=== PATIENT | female | born 1995 | race Caucasian/White ===

== ENCOUNTER 2023-12-23 09:27 | Emergency (ER) | payer BC, SELFPAY ==
[2023-12-23 09:40] VITALS: BP 132/93
--- NOTE | 2023-12-23 10:31 | ED.MUSCINJ ---
HPI-Injury
General
Chief Complaint: Musculo-Skeletal Complaint
Source: patient and family (mother at bedside)
Exam Limitations: none
Time Seen by Provider: 12/23/23 10:12
Nursing documentation reviewed up to this point in time: agreed with
History of Present Illness-Injury
Initial Injury comments:
28 yo female with h/o GERD, IBS, Saroj-Danlos, MDD, MTHFR mutations, atlantoaxial instability, migraines, 'chronic neck and back issues,' presents stating while working out at gym doing abdominal exercises, about 3 hours ago, felt and heard a
'snap' in left side of neck. Due to her Saroj Danlos, atlantoaxial instability, and she is concerned that she herniated a disc (her mother at bedside states similar thing happened to her and she herniated a disc), pt also has tingling down left arm
and 5th finger.
Past History
Past History
ED Past Medical History: Other (MTHFR gene mutations, MDD, Atlanto-axial instability, migraines)
ED Past Surgical History: Tonsilectomy
Social History
Tobacco: Non-smoker
Alcohol: Occasional
Personal: Single
Living: with family
Employment: Employed
Review of Systems
Review of Systems
Allergies reviewed?: Yes
All Other Systems: ROS reviewed and negative except as documented in HPI and ROS
Constitutional: Denies fever
EENT: Denies sore throat or mouth pain
Respiratory: Denies trouble breathing
Cardiac: Denies chest pain
ABD/GI: Denies abdominal pain or nausea
: Reports other (Pt does not get menses, is on Mirena control )
Musculoskeletal: Reports neck pain
Skin: Reports no symptoms
Neurological: Reports other (tingling left arm and 5th finger)
Phy Exam
Physical Exam
Physical Exam:
GENERAL: No acute distress. A&Ox3.
CONSTITUTIONAL: Afebrile.
EYES: PERRL, conjunctivae normal
Neck: Tender left lateral ST. No spinal bony tenderness.
ENMT: moist mucus membranes, Pharynx nl
RESPIRATORY: Regular respirations, nonlabored, lungs clear.
CARDIOVASCULAR: Regular rate and rhythm, no murmurs, no rubs.
GI: Soft, nontender, normal BS
MUSCULOSKELETAL: Tender left neck ST's along sternocleidomastoid muscle upper shoulder area and lateral neck. Moves with ease. Well perfused.
SKIN: Warm, dry, pink
PSYCH: Normal mood and affect. Well kept, interactive and appropriate
NEUROLOGIC: Awake, alert and oriented. No focal neurological deficits, strength equal throughout. Sensation to touch normal both UE's.
Injury Course
Orders/Labs/Results
Orders:
Orders
12/23/23 10:25
CT Cervical Spine W/o Iv Contr Urgent
Comment:
Reason For Exam: pain L neck hx atlanto axial instability Eh Danlos
MDM/Problems Addressed
Differential Diagnosis Includes:
cervical strain,
MDM/Problems Addressed:
28 yo female with h/o GERD, IBS, Saroj-Danlos, MDD, MTHFR mutations, atlantoaxial instability, migraines, 'chronic neck and back issues,' presents stating while working out at gym doing abdominal exercises, about 3 hours ago, felt and heard a
'snap' in left side of neck. Due to her Saroj Danlos, atlantoaxial instability, and she is concerned that she herniated a disc (her mother at bedside states similar thing happened to her and she herniated a disc), pt also has tingling down left arm
and 5th finger.
Afebrile, NAD
Pt arrived with her own hard c collar on and on initial exam she had removed it herself.
She has taken nothing for pain, she has her own Celebrex and I had her take her 200 mg tablet.
No neuro deficits
11:[address] cervical spine radiology report read: IMPRESSION:
No acute abnormality is appreciated. No CT evidence for disc disease; no disc herniations or areas of neural foraminal narrowing appreciated. Note that MRI is more sensitive for detection of disc pathology.
Questionable subcentimeter nodule within the right thyroid gland.
Copy of report given to pt. She and PCP are aware of the thyroid nodule. Copy of disc provided as she called and made appointment with her PCP for later today
Final diagnosis: L cervical strain
*Critical Care Note
Total Time (30-74mins, 75-104mins- exclusive of procedures): Not Applicable
ED Attending Note
-
Portions of this chart may have been created with voice recognition software.� Occasional wrong word or��sound alike� substitutions may have occurred due to the inherent limitations of voice recognition software.
Discharge Plan
Departure
Patient Disposition: Home (Routine Discharge)
Date of Disposition: 12/23/23
Time of Disposition: 11:42
Patient with high blood pressure during this ER visit?: No
Condition: Good
Discharge Problem:
Strain of cervical portion of left trapezius muscle
Instructions: Cervical Muscle Strain, Using Cold for Pain
Prescriptions:
No Action
Multivitamin
1 tab PO DAILY
Referrals:
Mateus Ronquillo MD [Family Provider] - As needed
Activity Restrictions/Additional Instructions:
As we discussed, your neck CT shows nothing worrisome, use your Celebrex as prescribed as needed for pain.
Interventions
Interventions:
*Risk Screen - Suicide Last Done: 12/23/23 09:40
*General Assessment Last Done: 12/23/23 09:40
*Neglect/Abuse Screening Last Done: 12/23/23 09:40
ED- Fall Risk Assessment Last Done: 12/23/23 12:03
*ED COVID-19 Vaccine History Last Done: 12/23/23 12:03
*Nursing Disposition Last Done: 12/23/23 12:03
ED-Musculoskeletal Assessment Last Done: 12/23/23 12:02
Discharge Date and Time
Discharge Date/Time: 12/23/23 12:04
Print Language: CITIZEN [place]
[2023-12-23 10:51] VITALS: BP 126/71
== END 2023-12-23 12:04 | disposition home or self-care (01) ==
LOC: EMR 09:27
PROVIDERS: EMERGENCY PHYSICIAN Emergency Medicine; FAMILY PHYSICIAN Internal Medicine Geriatric Medicine
DX: S29.012A Strain of muscle and tendon of back wall of thorax, initial encounter (principal); S16.1XXA Strain of muscle, fascia and tendon at neck level, initial encounter; X50.1XXA Overexertion from prolonged static or awkward postures, initial encounter
CPT/HCPCS: 99283; 72125